=== PATIENT | male | born 1935 | race Caucasian/White ===

== ENCOUNTER 2024-02-26 18:20 | Emergency (ER) | payer OTHER ==
[2024-02-26 19:39] LABS: BASOPHILS PERCENT AUTO 0.6 % (0.0-1.0); EOSINOPHILS ABSOLUTE AUTO 0.1 K/mm3 (0.0-0.4); EOSINOPHILS PERCENT AUTO 1.1 % (0.0-6.0); HEMATOCRIT 38.5 % (42.0-52.0); HEMOGLOBIN 13.5 gm/dl (14.0-18.0); IMMATURE GRAN ABSOLUTE AUTO 0.02 K/mm3 (0.00-0.05); IMMATURE GRAN PERCENT AUTO 0.3 % (0.0-0.4); LYMPHOCYTES ABSOLUTE AUTO 1.6 K/mm3 (1.0-4.8); LYMPHOCYTES PERCENT AUTO 23.5 % (24.0-44.0); MEAN CORPUSCULAR HEMOGLOBIN 33.5 pg (28.0-32.0); MEAN CORPUSCULAR HGB CONC 35.1 g/dl (32.0-36.0); MEAN CORPUSCULAR VOLUME 95.5 fl (83.0-99.0); MEAN PLATELET VOLUME 12.1 fl (9.4-12.4); MONOCYTES ABSOLUTE AUTO 0.7 K/mm3 (0.0-0.8); MONOCYTES PERCENT AUTO 9.9 % (0.0-8.0); NEUTROPHILS ABSOLUTE AUTO 4.3 K/mm3 (1.8-7.7); NEUTROPHILS PERCENT AUTO 64.6 % (41.0-71.0); PLATELET COUNT,PLT 117 K/mm3 (150-400); RED BLOOD CELL COUNT 4.03 M/mm3 (4.52-5.90); WHITE BLOOD CELL COUNT,WBC 6.65 K/mm3 (3.9-11.3)
[2024-02-26 20:10] LABS: ALBUMIN 3.7 g/dl (3.4-5.0); ANION GAP 16.7 (5-15); BILIRUBIN TOTAL 0.8 mg/dL (0.2-1.0); BUN/CREATININE RATIO 12.8 (14-18); CALCIUM 8.7 mg/dL (8.5-10.1); CREATININE 1.8 mg/dL (0.7-1.3); EST CRCL DRUG DOSING (CG) 26.9 mL/min; MAGNESIUM 1.9 mg/dL (1.8-2.4); POTASSIUM,K 4.7 mEq/L (3.5-5.1); PROTEIN TOTAL,TP 7.6 g/dl (6.4-8.2); TSH 2.522 uIU/mL (0.358-3.74)
[2024-02-26 21:40] LABS: APPEARANCE,URINE CLEAR (Clear); BILIRUBIN,URINE NEGATIVE (Negative); COLOR,URINE YELLOW (Yellow); GLUCOSE,URINE 2+ (Negative); KETONES,URINE NEGATIVE (Negative); LEUKOCYTE ESTERASE,URINE NEGATIVE (Negative); NITRITE,URINE NEGATIVE (Negative); OCCULT BLOOD,URINE NEGATIVE (Negative); PROTEIN,URINE NEGATIVE (Negative); UROBILINOGEN,URINE 0.2 (0.2-1.0)
[2024-02-26 21:48] LABS: BACTERIA,URINE NOT SEEN /hpf (FEW); EPITHELIAL CELLS,URINE NOT SEEN /hpf (0-5); RBC,URINE NOT SEEN /hpf (0-5); WBC,URINE NOT SEEN /hpf (0-5)
[2024-02-26 21:49] LABS: MUCUS,URINE NOT SEEN /hpf (FEW)
[2024-02-26] MEDS: Insulin Glargine,Human Rec. Analog 100 Units/ML 3 ML Pen SUBCUT SCH (22:58)
[2024-02-27] MEDS ORDERED: Insulin Glargine,Human Rec. Analog 100 Units/ML 3 ML Pen SUBCUT SCH (21:00)
== END 2024-02-26 23:12 | disposition home or self-care (01) ==
LOC: JD.ED 18:20
DX: E11.65 Type 2 diabetes mellitus with hyperglycemia (principal); Z79.4 Long term (current) use of insulin
CPT/HCPCS: 36415; 80053; 81001; 82947; 83735; 84443; 85025; 99285; J1815

== ENCOUNTER 2024-04-26 13:29 | Emergency (ER) | payer OTHER ==
[2024-04-26] MEDS: Dextrose 5%-0.9% NaCl 1,000 ML IV SCH (14:04)
[2024-04-26 14:22] LABS: BASOPHILS PERCENT AUTO 0.6 % (0.0-1.0); EOSINOPHILS ABSOLUTE AUTO 0.1 K/mm3 (0.0-0.4); EOSINOPHILS PERCENT AUTO 1.5 % (0.0-6.0); HEMATOCRIT 39.6 % (42.0-52.0); HEMOGLOBIN 13.2 gm/dl (14.0-18.0); IMMATURE GRAN ABSOLUTE AUTO 0.03 K/mm3 (0.00-0.05); IMMATURE GRAN PERCENT AUTO 0.5 % (0.0-0.4); LYMPHOCYTES ABSOLUTE AUTO 1.9 K/mm3 (1.0-4.8); LYMPHOCYTES PERCENT AUTO 29.4 % (24.0-44.0); MEAN CORPUSCULAR HEMOGLOBIN 33.8 pg (28.0-32.0); MEAN CORPUSCULAR HGB CONC 33.3 g/dl (32.0-36.0); MEAN CORPUSCULAR VOLUME 101.3 fl (83.0-99.0); MONOCYTES ABSOLUTE AUTO 0.5 K/mm3 (0.0-0.8); NEUTROPHILS ABSOLUTE AUTO 3.9 K/mm3 (1.8-7.7); PLATELET COUNT,PLT 120 K/mm3 (150-400); RED BLOOD CELL COUNT 3.91 M/mm3 (4.52-5.90); WHITE BLOOD CELL COUNT,WBC 6.53 K/mm3 (3.9-11.3)
[2024-04-26 14:46] LABS: LACTIC ACID 1.8 mmol/L (0.4-2.0)
[2024-04-26 14:58] LABS: A/G RATIO 0.9 (1-2); ALBUMIN 3.5 g/dl (3.4-5.0); ANION GAP 16.1 (5-15); BILIRUBIN TOTAL 1.2 mg/dL (0.2-1.0); BUN/CREATININE RATIO 21.2 (14-18); C-REACTIVE PROTEIN 0.47 mg/dL (<0.30); CREATININE 1.7 mg/dL (0.7-1.3); MAGNESIUM 1.9 mg/dL (1.8-2.4); POTASSIUM,K 4.1 mEq/L (3.5-5.1); PROTEIN TOTAL,TP 7.3 g/dl (6.4-8.2)
[2024-04-26 15:05] LABS: EST CRCL DRUG DOSING (CG) 28.62 mL/min
[2024-04-26 15:25] LABS: APPEARANCE,URINE CLEAR (Clear); BILIRUBIN,URINE NEGATIVE (Negative); COLOR,URINE YELLOW (Yellow); GLUCOSE,URINE 2+ (Negative); KETONES,URINE NEGATIVE (Negative); LEUKOCYTE ESTERASE,URINE NEGATIVE (Negative); NITRITE,URINE NEGATIVE (Negative); OCCULT BLOOD,URINE NEGATIVE (Negative); PROTEIN,URINE 1+ (Negative); UROBILINOGEN,URINE 0.2 (0.2-1.0)
[2024-04-26 15:58] LABS: BACTERIA,URINE FEW /hpf (FEW); MUCUS,URINE FEW /hpf (FEW); RBC,URINE 0-5 /hpf (0-5); SQUAMOUS EPITHELIAL CELLS,UR 0-5 /hpf (0-5); WBC,URINE 0-5 /hpf (0-5)
== END 2024-04-26 16:45 | disposition home or self-care (01) ==
LOC: JD.ED 13:29
DX: G30.1 Alzheimer's disease with late onset (principal); F02.A0 Dementia in other diseases classified elsewhere, mild, without behavioral disturbance, psychotic disturbance, mood disturbance, and anxiety; E11.9 Type 2 diabetes mellitus without complications; I25.2 Old myocardial infarction; Z95.5 Presence of coronary angioplasty implant and graft; Z79.899 Other long term (current) drug therapy; Z79.84 Long term (current) use of oral hypoglycemic drugs; Z79.4 Long term (current) use of insulin
CPT/HCPCS: 36415; 70450; 71045; 80053; 81001; 83605; 83735; 83880; 84484; 85025; 85379; 86140; 93005; 96360; 96361; 99285; J7042